=== PATIENT | female | born 1935 | race Caucasian/White ===

== ENCOUNTER 2017-05-16 11:28 | Emergency (ER) | END 2017-05-16 14:30 | disposition home or self-care (01) ==

== ENCOUNTER 2018-12-10 12:25 | Emergency (ER) | payer MEDICARE, OTHER ==
[~2018-12-10] VITALS: Ht 165.1 cm; Wt 59.1 kg
[~2018-12-10 12:25] MED LIST: ALBU8.5H8 INH; ASPI-535 PO; CARV3.1260 PO; CYCL10TA7 PO; DOCU-144 PO; GLIM4TAB3 PO; GLYC1SUP92 PR; HYDR-3980 PO; IBUP-1542 PO; KETO10TA PO; MAGN296S40 PO; METF500T24 PO; NAR2I NS; ONDA4TAB14 PO; ONDA4TAB8 PO; OSEL75CA23 PO; OXYC-281 PO; SIMV40TA2 PO; SIMV40TA3 PO
[2018-12-10 12:32] VITALS: Ht 165.1 cm; Wt 59.1 kg
[2018-12-10] MEDS ORDERED: SOD CHLORIDE 0.9% 1,000 ML IV STA (12:37)
[2018-12-10] MEDS ORDERED: BARIUM SULF 2% 450 ML BTL (BERRY SMOOTHIE) PO STA (12:37)
[2018-12-10] MEDS ORDERED: MAGNESIUM CITRATE 300 ML BTL PO ONE (15:30)
[2018-12-10] MEDS ORDERED: MINERAL OIL 133 ML ENEMA PR ONE (16:30)
[2018-12-10 18:04] VITALS: BP 160/85; PULSE 75; RESP 18
== END 2018-12-10 18:19 | disposition home or self-care (01) ==
LOC: E/R 12:25
DX: K59.00 Constipation, unspecified (principal); E11.9 Type 2 diabetes mellitus without complications; Z79.84 Long term (current) use of oral hypoglycemic drugs; Z98.61 Coronary angioplasty status
CPT/HCPCS: 36415; 74176; 80053; 81001; 83690; 85025; 96360; 96361; 99285; J7030